=== PATIENT | female | born 2000 | race Caucasian/White ===

== ENCOUNTER 2025-06-19 16:50 | Emergency (ER) | payer OTHER, SELFPAY ==
--- OUTSIDE RECORDS SUMMARY | 2025-01-02 11:00 | XMS_ITS ---
Author Organization [facility] Address [address] [place], [place] [id number] Care Team Providers Care Binder Fixer Name Role Phone Nic Wanda Unavailable [phone] Encounters Encounter Location Date Provider Diagnosis [facility] [address] [place], [place] [id number] 01/02/2025 Wanda Lucero Plan Of Treatment No Information Progress Notes * Kimmie CARBALLODOB:2000 (24 yo F)Acc No.[id number]:01/02/2025 Patient:?Kimmie Carballo :?Wanda Lucero ODDOB:2000???Age:24 Y???Sex: FemaleDate:01/02/2025Phone:[phone]:[id number] [id number] In:04:18 PM ESTCheck Out:04:43 PM EST Objective: Vision Examination:? * Electronic signature of Wanda Lucero on 06/19/2025 at 06:17 PM ESTSign off status: PendingVisit Status:?NOT Treate (Pt was not Treated by Provider) * Provider: Jet Lucero OD Date: 0 01/02/2025 Generated for Printing/Faxing/eTransmitting on:?06/19/2025 06:17 PM EST
[2025-06-19 17:20] VITALS: BP 130/87; PULSE 107; TEMP 36.1; O2SAT 100; BMI 25.6
[2025-06-19] MEDS: ONDANSETRON 4 MG RAPDIS TABLET SL (18:03)
--- NOTE | 2025-06-19 18:16 | ED.GENADUL1 ---
HPI HPI - General Adult General Chief complaint: Nausea/Vomiting/Diarrhea Stated complaint: Nausea/Vomiting/Diarrhea Time Seen by Provider: 06/19/25 17:31 Source: patient Mode of arrival: Wheelchair Limitations: no limitations History of Present Illness HPI narrative: 24-year-old female presents to the emergency room with chief complaint of nausea vomiting. Patient has a history of cyclic vomiting post marijuana use. She states she been smoking marijuana over the last several hours and vomiting. She is here requesting a Zofran. She is here visiting friends from out of town and she has not been to this ER in the past. Patient's vital signs are stable not currently febrile plan Related Data Previous Rx's ?Medication ?Instructions ?Recorded ondansetron 4 mg disintegrating 4 mg PO Q8H PRN nausea and 06/19/25 tablet vomiting 3 days #10 tabs Allergies Allergy/AdvReac Type Severity Reaction Status Date / Time No Known Drug Allergies Allergy Verified 06/19/25 17:19 Opioid HPI Opioid Management Most Recent Opioid Data: Last Pain Scale 10 Today, 17:20 Review of Systems ROS Status of ROS 10 or more systems reviewed and unremarkable except as noted in history and below PFSH PFSH Social History Little interest or pleasure in doing things: not at all Feeling down, depressed, or hopeless: not at all Exam Narrative Exam Narrative: All Systems are negative except as noted/marked.All systems reviewed and otherwise negative Nurses note and vital signs reviewed and patient is not hypoxic. General: The patient appears uncomfortable with emesis bag at bedside Skin: Warm, dry, no pallor noted. There is no rash noted. Head: Normocephalic, atraumatic Eye: Normal conjunctiva, no drainage, EOMI. PERRL Ears, Nose, Mouth, and Throat: oral mucosa is moist. Nares patent. Mouth without vesicles. Ear canals patent. Tm's without Erythema Cardiovascular: Regular Rate and Rhythm Respiratory: Patient is in no distress, no accessory muscle use, lungs are clear to auscultation, no wheezing, rales or rhonchi Back: non-tender, no CVA tenderness bilaterally to percussion. GI: Normal bowel sounds, no tenderness to palpation, no masses appreciated. No rebound, guarding, or rigidity noted. Musculoskeletal: The patient has no evidence of calf tenderness, no pitting edema, symmetrical pulses noted bilaterally Neurological: A&O x4, normal speech Psychiatric: Cooperative Constitutional Vital Signs, click to edit/add: Last Vital Signs Temp 97 F L 06/19/25 17:20 Pulse 107 H 06/19/25 17:20 Resp 16 06/19/25 17:20 BP 130/87 06/19/25 17:20 Pulse Ox 100 06/19/25 17:20 O2 Del Method Room Air 06/19/25 17:20 Course Vital Signs Vital signs: Vital Signs Temperature 97 F L 06/19/25 17:20 Pulse Rate 107 H 06/19/25 17:20 Respiratory Rate 16 06/19/25 17:20 Blood Pressure 130/87 06/19/25 17:20 Pulse Oximetry 100 06/19/25 17:20 Oxygen Delivery Method Room Air 06/19/25 17:20 Temperature 97 F L 06/19/25 17:20 Pulse Rate 107 H 06/19/25 17:20 Respiratory Rate 16 06/19/25 17:20 Blood Pressure 130/87 06/19/25 17:20 Pulse Oximetry 100 06/19/25 17:20 Oxygen Delivery Method Room Air 06/19/25 17:20 Medical Decision Making MDM Narrative Medical decision making narrative: 24-year-old female presents to the emergency room with chief complaint of nausea vomiting. Patient has a history of cyclic vomiting post marijuana use. She states she been smoking marijuana over the last several hours and vomiting. She is here requesting a Zofran. She is here visiting friends from out of town and she has not been to this ER in the past. Patient's vital signs are stable not currently febrile plan Patient's nurse went into the room to try to assess her and she stated she would not let allow any blood work to be drawn or other testing done until she had an oral Zofran. When the nurse went back with the Zofran she states she did not want any thing drawn at this time she was trying to feel better. I went and explained to the patient that we do have a full ER if she does not want further testing we can get her discharged and she agreed. Patient be discharged home cyclic vomiting. Vital signs are stable she is not currently vomiting after dose of Zofran. Patient had no questions at discharge Differential Diagnosis Differential Diagnosis: Nausea, vomiting, cyclic vomiting, marijuana use Medical Records Medical records reviewed: Yes I reviewed the patient's medical records Lab Data Lab results reviewed: Yes I reviewed the patient's lab results Discharge Plan Discharge Chief Complaint: Nausea/Vomiting/Diarrhea Clinical Impression: Drug-induced nausea and vomiting Patient Disposition: Home, Self-Care Time of Disposition Decision: 18:14 Condition: Good Prescriptions / Home Meds: New ondansetron 4 mg tablet,disintegrating 4 mg PO Q8H PRN (Reason: nausea and vomiting) 3 Days Qty: 10 0RF Print Language: Bulgarian Instructions: Cyclic Vomiting Syndrome (ED) Referrals: Physician,Non-Staff, MD [Primary Care Provider] - 1 week
--- OUTSIDE RECORDS SUMMARY | 2025-06-19 18:19 | XMS_ITS | Clinical Summary ---
Author Organization [facility] Address [address] [place] [address] Care Team Providers Care Pastor Name Role Phone Guille Singh DO Primary Care Provider [phone] Allergies No known active allergies Medications MedicationSigDispense QuantityRefillsLast FilledStart DateEnd DateStatus albuterol 108 (90 Base) MCG/ACT inhaler Inhale 1 puff every 6 hours as needed for wheezing. 18 g ctive fluticasone (Flonase) 50 MCG/ACT nasal spray Indications:Nasal congestion with rhinorrheaAdminister 2 sprays into each nostril daily. Shake gently. Before first use, prime pump. After use,clean tip and replace cap. 16 g 01/10/2024ctive cholestyramine (Questran) 4 g packet Take 1 packet (4 g) by mouth daily. 90 packet ctive Slynd 4 MG tablet Take 1 tablet by mouth daily.5Active DULoxetine (Cymbalta) [address] capsule Indications:Episode of recurrent major depressive disorder, unspecified depression episode severity,HAMIDA (generalized anxiety disorder)TAKE 1 CAPSULE (30 MG) BY MOUTH DAILY. DO NOT CRUSH OR CHEW. 90 capsule /ctive Lo Loestrin Fe 1 MG-10 MCG / 10 MCG tablet /Discontinued escitalopram (Lexapro) 10 MG tablet Indications:Recurrent major depressive disorder, in partial remission,HAMIDA (generalized anxiety disorder)Take 2 tablets (20 mg) by mouth daily. 30 tablet Discontinued sertraline (Zoloft) 50 MG tablet Take 50 mg by mouth daily.05/27/2025Discontinued DULoxetine (Cymbalta) [address] capsule Indications:Episode of recurrent major depressive disorder, unspecified depression episode severity,HAMIDA (generalized anxiety disorder)Take 1 capsule (30 mg) by mouth daily. Do not crush or chew. 30 capsule Discontinued Active Problems ProblemNoted DateDiagnosed DateBile acid malabsorption miejpsch38/06/2024 Assessment & Plan (05/27/2025 4:45 PM EDT): -Chronic, controlled -Symptoms present since cholecystectomy in 2019 -Previously discussed and prescribed cholestyramine, however did not take due to medication not tasting good -Encouraged adherence -Denies changes in bowel movements, blood in stool, or FH of CRC Orders: CBC Comprehensive metabolic panel Lipid panel Assessment & Plan (03/04/2024 3:43 PM EDT): -Generalized crampy abdominal pain with 8 episodes of loose stools daily since cholecystectomy in 2019 -Started on cholestyramine 4 g daily -Provided patient with instructions on proper use and up-titration Lhuofty1302/07/2024 Assessment & Plan (02/07/2024 11:26 PM EDT): - Witnessed syncopal episode lasting few seconds preceded by feeling of warmth in the past week - Endorses prior history of syncopal episodes 1-2 years ago - Will assess for arrhythmia with holter monitor Srbzwc7801/11/2024 Assessment & Plan (01/11/2024 7:58 AM EDT): -Patient stated that she has intermittent nausea, uses marijuana [smoking, chewables] -Prescription sent for short course of Zofran -Reassess in 4 weeks for symptom control. Nasal congestion with /14/2024 Assessment & Plan (01/11/2024 7:58 AM EDT): -Patient having rhinorrhea with nasal congestion and sore throat since 3 days likely viral cause HAMIDA (generalized anxiety disorder)10/10/2022 Assessment & Plan (05/27/2025 4:45 PM EDT): -Chronic, uncontrolled\ -As above Orders: DULoxetine (Cymbalta) [address] capsule; Take 1 capsule (30 mg) by mouth daily. Do not crush or chew. Assessment & Plan (03/04/2024 3:22 PM EDT): -HAMIDA-7 score: 4 -Endorses improved symptoms and has not been using friend's Xanax -On lexapro 10 mg daily, intermittent use. Counseled on daily adherence Assessment & Plan (02/07/2024 11:27 PM EDT): - HAMIDA-7 score:14 - Endorses episodes of tachycardia, chest pain, nausea for the past year - Lexapro uptitrated to 20 mg; recommended decreasing THC use Assessment & Plan (01/11/2024 7:55 AM EDT): -HAMIDA-7 score of 5 this visit -Patient stated that sertraline not helping with any of the symptoms -Start escitalopram 10 Mg daily, follow-up visit in 4 weeks for medication adjustment -Referral to [facility] clinic for medication recommendations -Last TSH 1 year ago normal, recheck TSH to rule out thyroid disorder Assessment & Plan (11/15/2022 1:32 PM EDT): - HAMIDA-7 score of 5 this visit - Significant symptom improvement on sertraline - Plan for up titration to 150mg as above - Follow-up in 4 weeks to assess dose titration Assessment & Plan (10/10/2022 1:53 PM EDT): - HAMIDA-7 16 - Patient not experiencing significant relief in anxiety on fluoxetine 20 mg - Consideration for bupropion given depression, and untreated suspected ADHD, however given severe anxiety endorsed by patient, would recommend against this at this time - Counseling resources provided ADHD (attention deficit hyperactivity disorder) vwdqbedhvm58/22/2022 Assessment & Plan (10/10/2022 1:54 PM EDT): - Referral placed for evaluation at last office visit, however patient reports she never received call back to schedule appointment - Provided patient with list of resources for adult ADHD assessment - Untreated ADHD may be contributing to patient's other behavioral health conditions, [facility] [place] [facility], and patient will need to establish with appropriate clinic Assessment & Plan (06/20/2022 4:21 PM EST): External referral placed Encouraged patient to call to set up appointment Recurrent major depressive disorder, in partial qogfihomj35/26/2022 Overview (11/15/2022): Anxiety/Depression: Seen 10/10/22 for depression, unresponsive to fluoxetine. Patient changed to sertraline 50mg, plans to uptitrate to 100mg at 1 week. Patient provided with counseling resources thatvisit. Presenting today for follow up on medication changes. Assessment & Plan (03/04/2024 3:21 PM EDT): -PHQ-9 score: 8 -Denies suicidal or homicidal ideations -On lexapro 10 mg, intermittent adherence to medication -Counseled on daily use and side effects with abrupt cessation Assessment & Plan (02/07/2024 11:22 PM EDT): - PHQ-9 score; denies suicidal or homicidal ideations - On lexapro 10 mg, will uptitrate to 20 mg Assessment & Plan (01/11/2024 7:57 AM EDT): -PHQ-9 score 8 today -No SI/HI -Patient spoke to [facility] today, declined counseling services. Recommend referral to [facility] clinic -Patient started on escitalopram 10 Mg daily today, reassess in 4 weeks for medication adjustment -Recheck TSH for thyroid dysfunction Assessment & Plan (11/15/2022 1:33 PM EDT): - Symptoms much improved with transition from fluoxetine to sertraline - PHQ-9 score of 10 this visit - Patient interested in dose increase from 100 mg to 150 mg daily of sertraline - Prescription sent - Patient reports she has counseling resources as provided at previous visit, declines further resources at this time - No SI/HI - Patient may ultimately benefit from dual therapy, discussed this visit, patient prefers uptitration at this time - Follow-up at 4 weeks to evaluate dose increase Assessment & Plan (10/10/2022 1:52 PM EDT): - PHQ-9 23 - Patient previously on fluoxetine 20 mg - Patient reports that she is feeling no ongoing benefit, despite continuing to take medication at prescribed dose - Requesting increase in dose, or alternative medication - Concurrent anxiety, and concern for ADHD (not formally diagnosed) - Evidence of passive SI during evaluation, without plans or intent - We will change fluoxetine 20 mg to Zoloft 50 mg, with plan to uptitrate to 100 mg after 1 week - Patient provided with local counseling resources, as well as crisis resources with AVS - Patient will follow-up in 4 weeks to reassess symptoms on Zoloft and need for further medication adjustments Assessment & Plan (06/20/2022 4:20 PM EST): Stable, controlled Continue fluoxetine 20 mg Assessment & Plan (04/24/2022 11:45 AM EDT): Patient has a history of depression for which she was prescribed with 10 mg of Fluoxetine and will want a refill of this medication. Currently do not feel depressed, no suicidal ideation or plan but says she wants to continue fluoxetine use at a higher dose because of the benefits she is getting so far. PLAN - Refill for fluoxetine 20 mg daily done - Option of Psych counseling discussed with her and she is open and willing to benefit from the counseling services at the [facility] [place] Asthma, intermittent, cwksztwoeulif89/24/2022Chronic midline low back pain without gbtwylof56/01/2018 Assessment & Plan (11/15/2022 1:38 PM EDT): - Chronic, ongoing greater than 5 years - No triggering event per patient - Trialed heat, ice, stretches, and OTC pain relievers without success - History of physical trauma at young child (falling down flight of stairs) - No evidence of scoliosis or other deformity on exam - No red flag symptoms for cauda equina or malignancy - Given chronic nature of pain with failure of conservative therapy, plan to obtain lumbar XR - Encouraged continued use of home exercises, instructions provided on AVS - Patient requesting information on medical marijuana, education provided on AVS - Reassess at follow up pending Xray results Assessment & Plan (06/20/2022 4:19 PM EST): Encourage patient to go to PT - open referral Discussed other conservative management: stretching, heat/ice, nsaids Assessment & Plan (04/24/2022 11:51 AM EDT): Pain is non radiating and had previously been treated with NSAIDS: Ibuprofen, Naproxen and topical medications with minimal relief. Options of physical therapy discussed. PLAN - PO meloxican 7.5 mg daily PRN (to be taken with meals); discontinue other NSAID'S.. - Referral for Physical therapy done Primary zlsppkti48/01/2018 Resolved Problems ProblemNoted DateDiagnosed DateResolved DateHistory of anylamcpa58/26/2022 01/10/2024 Assessment & Plan (04/24/2022 11:38 AM EDT): Recently treated for Chlamydia. Symptoms have resolved now, no dysuria, fever, or discharge. PLAN - To retest 3 months from completion of treatment. UTI (urinary tract infection)/06/2024 Assessment & Plan (04/24/2022 1:45 PM EDT): Received Bactrim for treatment of urinary symptoms including dysuria and 1 dose of Fluconazole for yeast infection last week. Urine culture on 04/22/22 shows no growth and her dysuria has resolved. PLAN: - Discontinue Bactrim according to antibacterial stewardship recommendation and also to avoid possible fungal overgrowth. Pelvic pain/06/2024 Overview (05/13/2022): Poor tolerance to speculum exam following TVUS Speculum exam visually unremarkable TVUS unremarkable Urine dip concerning for UTI S/p rocephin 1g, mefoxin 2g, and doxycycline 250mg in ED GC/CT collected and ordered, however not yet pending, recommend sending GC/CT Low suspicion for PID at this time, however given it remains a possibility, would recommend completing PID treatment with full 14 day course of doxycycline Given patient tolerating PO intake and no signs of TOA, treatment can be completed outpatient Recommend f/u with primary rooming house keeper outpatient in 2 weeks Allergic kqhvpgri76 Overview (05/13/2022): This term is a replacement for an inactive term Acne fymwpqnp68 Encounters DateTypeDepartmentCare IqekBeeqmheilyd80/20/2025Refill [facility] Internal [facility] - [address] [phone] Guille Singh DO Episode of recurrent major depressive disorder, unspecified depression episode severity; HAMIDA (generalized anxiety disorder)05/27/2025 3:50 PM EDTOffice Visit [facility] - [address] [phone] Stella Richards MD Merchant, Urja, DO Overweight (BMI 25.0-29.9) (Primary Dx); HAMIDA (generalized anxiety disorder); Episode of recurrent major depressive disorder, unspecified depression episode severity; Bile acid malabsorption gnfucide74/29/2025Travelfrom Last 3 Months Immunizations ImmunizationAdministration DatesNext YljCPeU3104/25/2006,03/19/2003,08/01/2002, 05/23/2002,02/25/2002Hep B, adult2001Hib (PRP-T)01/01/2003,05/23/2002Hib / Hep B008/01/2002,02/25/2002IPV04/25/2006,05/23/2002,02/25/2002MMR01/01/2003MMRV 04/25/2006Meningococcal IMU9N8309/22/2016Pneumococcal Conjugate PCV 7003/19/2003, 05/23/2002,02/25/2002Tdap03/11/20143858Rmlufifkn11/05/2003 Family History * Patient is adopted Medical HistoryRelationNameCommentsSubstance AbuseMotherADD / BEQBOhxidg0Dtzio dywrjmuZvjojl3Enxz rsntYbfarcdkLqpxAzxgcfAuvsmzcxDgmchyn0TivfjWljcocLviuuvgMgfdk PgthykJcecfSwgspn0Khhkr Social History Tobacco UseTypesPacks/DayYears UsedDateSmoking Tobacco: NeverSmokeless Tobacco: Never Tobacco Cessation:Counseling Given: Yes Comments:VAPES Alcohol UseStandard Drinks/WeekCommentsYes0 (1 standard drink = 0.6 oz pure alcohol)rarelyAUDIT-CAnswerDate RecordedQ1: How often do you have a drink containing alcohol?Never01/06/2024Q2: How many drinks containing alcohol do you have on a typical day when you are drinking?Patient does not drink01/06/2024Q3: How often do you have six or more drinks on one occasion?Never01/06/2024Overall Financial Resource Strain (CARDIA)AnswerDate RecordedHow hard is it for you to pay for the very basics like food, housing, medical care, and heating?Very hard 01/10/2024HQ-2AnswerDate RecordedPatient Health Questionnaire-2 Score3 01/10/2024RAPARE - TransportationAnswerDate RecordedIn the past 12 months, has lack of transportation kept you from medical appointments or from getting medications?No01/10/2024In the past 12 months, has lack of transportation kept you from meetings, work, or from getting things needed for daily living?No 01/10/2024Housing Stability Vital SignAnswerDate RecordedIn the last 12 months, was there a time when you were not able to pay the mortgage or rent on time?No 01/10/2024Number of Places Lived in the Last YearNot on file01/10/2024In the last 12 months, was there a time when you did not have a steady place to sleep or slept in [place] (including now)?No01/10/2024HQ-9AnswerDate RecordedPatient Health Questionnaire-9 Zncsf55501/10/2024CommentsNoSex and Gender InformationValueDate RecordedSex Assigned at AljvjTlsnbg12/09/2024 8:16 PM EDT Legal AneGyeywb94/01/2022 2:04 PM EDTGender ExahsauhFemvcl73/09/2024 8:16 PM EDT Sexual MihbinaoqmwVwmeekdm95/11/2024 1:48 PM EDT Last Filed Vital Signs Vital SignReadingTime TakenCommentsBlood Gpqkqyay316/7105/27/2025 4:05 PM EDT Gumli764105/27/2025 4:05 PM CUOYppkmyxqnyl99.4 ??C (97.5 ??F)05/27/2025 4:05 PM EDTRespiratory Tmrg316509/15/2024 8:01 PM ESTOxygen Vkrpoewhus06%05/27/2025 4:05 PM EDTInhaled Oxygen Concentration--Lnqziq33 kg (139 lb)05/27/2025 4:05 PM EDT Lambwh918.5 cm (5' 2 )05/27/2025 4:05 PM EDTBody Mass Index25.421 4:05 PM EDT Plan of Treatment Health MaintenanceDue DateLast DoneCommentsMeningococcal B Vaccine (1 of 2 - Standard)2017HPV Vaccines (3 - 3-dose series), 06/04/2020Pneumococcal Vaccine: Pediatrics (0 to 5 Years) and At-Risk Patients (6 to 49 Years) (1 of 2 - PCV), 05/23/2002, 02/25/2002Pap Smear3DTaP/Tdap/Td Vaccines (7 - Td or Tdap)/, 04/25/2006, 03/19/2003, Additional history existsCOVID-19 Vaccine (1 - 2024- season)2025Influenza Vaccine (#1)/12/2019, 08/23/2005 Depression Rucemmpyrf65, 01/10/2024Zoster Vaccines (1 of 2) , 08/17/2004, 01/01/2003RSV Immunization for Adults (1 - 1- dose 75+ series)2076Hepatitis B EmwbyufoMsptqwtor59/03/2003, 02/25/2002, 2001HIB WejsvlouUpppxnkth98/05/2003, 08/01/2002, 05/23/2002, Additional history existsIPV HhnohxqcPmtumksgo47/27/2006, 08/01/2002, 05/23/2002, Additional history existsMMR GcbnoehsEuysvilup57/27/2006, 01/01/2003Varicella MyddnmcaCpxtwhbsq67/27/2006, 08/17/2004, 01/01/2003Meningococcal Vaccine Snovvfucl03/26/2019, 09/22/2016HIV NgzmsyvacWdhqicovi89/19/2023Hepatitis C KeyjlcirzHhacaagtt09/19/2023Hepatitis A VaccinesAged OutNo longer eligible based on patient's age to complete this topicRSV Immunization under 20 MonthsAged Out No longer eligible based on patient's age to complete this topicRotavirus VaccinesAged OutNo longer eligible based on patient's age to complete this topic Procedures Procedure NamePriorityDate/TimeAssociated DiagnosisCommentsHEPATITIS C ANTIBODY Cpdktrw7611/15/2022 11:54 AM EDT Encounter for hepatitis C screening test for low risk patient HIV1,2 COMBO ANTIGEN-ANTIBODY SNOFMUXbmyorc68/19/2023 11:54 AM EDT Encounter for screening for HIV from Last 3 Months or Most Recently Relevant to Health Maintenance Results * HIV-1 and HIV-2 Antigen-Antibody Screen (11/15/2022 11:54 AM EDT)Component ValueRef RangeTest MethodAnalysis TimePerformed AtPathologist SignatureHIV 1,2 COMBO ANTIGEN/CCXCSBKRUgsulyxyoueLxvejzibvez69/20/2023 12:57 PM EDTSUMVAN WERT COUNTY HOSPITALComment:The specimen was non-reactive for HIV-1 and HIV-2 antibodies and p24 antigen using an FDA-cleared 4th generation HIV test. Based on this non- reactive screen result, further reflexive testing was not indicated and was, therefore, not performed.Specimen (Source)Anatomical Location / Laterality Collection Method / VolumeCollection TimeReceived TimeBloodVenous blood specimen / UnknownVenipuncture / Tetgltq5311/15/2022 11:54 AM EDT11/15/2022 1:23 PM EDT Narrative Authorizing ProviderResult TypeResult StatusAdleo Blair [facility]DSUM[facility] BLOOD ORDERABLESFinal ResultPerforming OrganizationAddressty/State/ZIP CodePhone Number [address] [address], * Hepatitis C antibody (11/15/2022 11:54 AM EDT)ComponentValueRef RangeTest MethodAnalysis TimePerformed AtPathologist SignatureHEPATITIS C VIRUS ABNot DetectedNot Ufrtphia08/19/2023 8:27 PM [facility]Comment:Patients with DETECTED Hepatitis C Ab results should have a new specimen submitted for supplementaltesting with a Hepatitis C Quantitative RNA assay (viral load), if clinically indicated.Specimen (Source)Anatomical Location / Laterality Collection Method / VolumeCollection TimeReceived TimeBloodVenous blood specimen / UnknownVenipuncture / Bxygxfh7911/15/2022 11:54 AM EDT11/15/2022 1:23 PM EDT Narrative Authorizing ProviderResult TypeResult StatusAdleo Blair [facility]DS[facility] BLOOD ORDERABLESFinal ResultPerforming OrganizationAddressty/State/ZIP CodePhone Number [address] [address], from Last 3 Months or Most Recently Relevant to Health Maintenance Insurance * Guarantor: Kimmie James TypeRelation to PatientDate of BirthPhone Billing AddressPersonal/YacuvfIpxk92/[address] [place] [address] * Guarantor: Kimmie James TypeRelation to PatientDate of BirthPhone Billing AddressPersonal/WlxdukLmpo50/16/[address] [place] [address] Care Teams Team MemberRelationshipSpecialtyStart DateEnd Date DO Guille [address] [facility] [address] [place], [place] [id number] PCP - General02/07/24
--- OUTSIDE RECORDS SUMMARY | 2025-06-19 18:19 | XMS_ITS | Clinical Summary ---
Author Organization [facility] Address [address] [facility], [address] [place] [address] Care Team Providers Care Mental Health Therapist Name Role Phone Devon Mira WHITE Primary Care Provider [phone] Allergies No known active allergies Medications MedicationSigDispense QuantityRefillsLast FilledStart DateEnd DateStatus ELURYNG 0.12-0.015 MG/24HR vaginal ring 12/29/2021ctive ISOtretinoin (ACCUTANE) 30 MG chemo capsule take 1 capsule by mouth twice a day MUST TAKE WITH A MEAL01/17/2022ctive Cranberry 1000 MG CAPS Take by mouthActive meloxicam (MOBIC) 7.5 MG tablet Indications:Chronic bilateral low back pain without sciaticaTake 1 tablet by mouth daily as needed for Pain 90 tablet 04/24/2022ctive FLUoxetine (PROZAC) 20 MG tablet Indications:Current moderate episode of major depressive disorder, unspecified whether recurrent (HCC)take 1 tablet by mouth once daily 90 tablet ctive famotidine (PEPCID) 20 MG tablet Indications:UrticariaTake 1 tablet by mouth 2 times daily for 14 days 28 tablet 04/30/2022ctive Active Problems Patient Care Coordination No te Formatting of this note migh t be different from the original. Tsh? ProblemNoted DateDiagnosed DateCurrent moderate episode of major depressive ddxmhiyb53/26/2022 Assessment & Plan (04/24/2022 11:59 AM EDT): Patient has a history of [...] benefit from the counseling services at the [facility] Encounter for initial prescription of intrauterine contraceptive device (IUD) 04/24/2022 Assessment & Plan (04/24/2022 1:59 PM EDT): Patient is currently on Accutane for acne as prescribed by her Pathology Secretary and uses Vaginal ring as her only contraception. PLAN - Discussed the need for additional form of protection against , agreed to this option. - Encouraged the use of Condom in addition to Vaginal ring form of protection. - Referral to [facility]INE to discuss further on the options available and best suitable to her History of eenkcvchj60/26/2022 Assessment & Plan (04/24/2022 1:44 PM EDT): Recently treated for Chlamydia. Symptoms have resolved now, no dysuria, fever, or discharge. PLAN - To retest 3 months from completion of treatment. Pelvic pain01/30/2022 Overview (04/22/2022): Poor tolerance to speculum exam following TVUS [...] be completed outpatient Recommend f/u with primary investigator outpatient in 2 weeks Primary /01/2018Chronic bilateral low back pain without sciatica 05/30/2018 Assessment & Plan (04/24/2022 1:38 PM EDT): Pain is non radiating and had previously been treated with NSAIDS: Ibuprofen, Naproxen and topical medications with minimal relief. Options of physical therapy discussed. PLAN - PO meloxican 7.5 mg daily PRN (to be taken with meals); discontinue other NSAID'S.. - Referral for Physical therapy done Asthma, intermittent, shgtxywwhjalq93/23/2018Allergic piwntozh80/17/2007 Overview (04/22/2022): This term is a replacement for an inactive term Resolved Problems ProblemNoted DateDiagnosed DateResolved DateUTI (urinary tract infection) Assessment & Plan (04/24/2022 1:50 PM EDT): Received Bactrim for treatment of urinary symptoms including dysuria and 1 dose of Fluconazole for yeast infection last week. Urine culture on 04/22/22 shows no growth and her dysuria has resolved. PLAN: - Discontinue Bactrim according to antibacterial stewardship recommendation and also to avoid possible fungal overgrowth. Hair loss Immunizations ImmunizationAdministration DatesNext GtpZOgW7604/25/2006,03/19/2003,08/01/2002, 05/23/2002,02/25/2002Hep B/Hib (Comvax)08/01/2002,02/25/2002Hepatitis B 2001Hib PRP-T, ACTHIB (age 2m-5y, Adlt Risk), HIBERIX (age 6w-4y, Adlt Risk), IM, 0.5mL01/01/2003,05/23/2002Influenza Vaccine, unspecified formulation 08/23/2005MMR, PRIORIX, M-M-R II, (age 12m+), SC, 0.5mL01/01/2003MMR-Varicella, PROQUAD, (age 12m -12y), SC, 0.5mL04/25/2006Meningococcal ACWY, MENACTRA (MenACWY-D), (age 9m-55y), IM, 0.5mL02Pneumococcal Conjugate 7-valent (Prevnar7)03/19/2003,05/23/2002,02/25/2002Poliovirus, IPOL, (age 6w+), SC/IM, 0.5mL09,05/23/2002,02/25/2002TDaP, ADACEL (age 10y-64y), BOOSTRIX (age 10y+), IM, 0.5mL03/11/2014Varicella, VARIVAX, (age 12m+), SC, 0.5mL06 Family History * Patient is adopted Medical HistoryRelationNameCommentsSubstance QcokyRihtuvSYTUNwehrs0Bdqtg Disease Mhhhsq6Yoos hvwvDwiwscwgRpprGwluqdRqffclggThjrnry3DjqrxRifjcsVwnkstnUrlckLxsxje GjesuLffwfs7Hpeuy Social History Tobacco UseTypesPacks/DayYears UsedDateSmoking Tobacco: NeverSmokeless Tobacco: Never Tobacco Cessation:Counseling Given: Not Answered Alcohol UseStandard Drinks/WeekCommentsYes0 (1 standard drink = 0.6 oz pure alcohol)rarelyPHQ-2AnswerDate RecordedPHQ-9 Total Azjmc111/26/2022 CommentsNoSex and Gender InformationValueDate RecordedSex Assigned at BirthNot on fileLegal FbgNfjedf71/14/2015 3:20 PM EDTGender IdentityNot on fileSexual OrientationNot on file Last Filed Vital Signs Vital SignReadingTime TakenCommentsBlood Gfcayehg537/6410 9:30 AM EDT Lntfo230605/22/2022 9:30 AM PTVQupqtxmxxdn12.7 ??C (98 ??F)05/22/2022 9:30 AM EDT Respiratory Rate--Oxygen Epzhtjcdln92%05/22/2022 9:30 AM EDTInhaled Oxygen Concentration--Msfutj60.6 kg (116 lb)05/22/2022 9:30 AM CENKwbisv622.5 cm (5' 2 )05/22/2022 9:30 AM EDTBody Mass Index21.221 9:30 AM EDT Plan of Treatment Not on file Insurance Care Teams Team MemberRelationshipSpecialtyStart DateEnd Date Mira Osorio DO [facility]04/24/22
--- OUTSIDE RECORDS SUMMARY | 2025-06-19 18:19 | XMS_ITS | Patient Health Record ---
Author Organization [facility] Address [address] [address] [place], [place] [id number] Care Team Providers Care Supervisor Train Operations Name Role Phone Wanda Lucero Unavailable [phone] Reason For Referral No Information Social History Social History Social HistorySocial InfoQuestionAnswerNotesAlcohol Screening:Did you have a drink containing alcohol in the past year?CdLwlswk1NgjrspbhhhxzztZhvjrkozLnqdvyc Use:Are you a:never smoker Encounters Encounter Location Date Provider Diagnosis [facility] [address] [facility] [address] [place], [place] [id number] 01/02/2025 Wanda Lucero Plan Of Treatment No Information
--- OUTSIDE RECORDS SUMMARY | 2025-06-19 18:19 | XMS_ITS | Encounter Summary ---
Author Organization [facility] Address [address] [place] [address] Care Team Providers Care Laboratory Helper Name Role Phone Guille Singh DO Primary Care Provider [phone] Reason for Visit * ReasonCommentsMed Change Request Encounter Details DateTypeDepartmentCare Team (Latest Contact Info)Ddjdrzgtwcn19/20/2025[facility] [address] [place] [id number] Guille Singh DO [address] [place] [address] Episode of recurrent major depressive disorder, unspecified depression episode severity; HAMIDA (generalized anxiety disorder) Social History Tobacco UseTypesPacks/DayYears UsedDateSmoking Tobacco: NeverSmokeless Tobacco: Never Comments:VAPES Alcohol UseStandard Drinks/WeekCommentsYes0 (1 standard drink [...] food, housing, medical care, and heating?Very hard 4PHQ-2AnswerDate RecordedPatient Health Questionnaire-2 Score3 01/10/2024RAPARE - TransportationAnswerDate [...] steady place to sleep or slept in ashelter (including now)?No01/10/2024HQ-9AnswerDate RecordedPatient Health Questionnaire-9 Kvrdn22201/10/2024CommentsNoSex and Gender InformationValueDate RecordedSex Assigned at LahcrGkmjjq93/09/2024 8:16 PM EDT Legal ZpiKavkrd30/01/2022 2:04 PM EDTGender ZqjcuohzRbzyte98/09/2024 8:16 PM EDT Sexual FuwzgliogwsJuvzvqsm87/11/2024 1:48 PM EDTdocumented as of this encounter Plan of Treatment Not on file documented as of this encounter Visit Diagnoses Diagnosis Episode of recurrent major depressive disorder, unspecified depression episode severity HAMIDA (generalized anxiety disorder) Generalized anxiety disorder documented in this encounter Additional Health Concerns AssessmentNoted TimePHQ-9 Depression Total Score: 8001/10/2024 3:25 PM EDT documented as of this encounter Care Teams Team MemberRelationshipSpecialtyStart DateEnd Date Guille Singh DO [address] [facility] [address] [place] [address] PCP - General02/07/24documented as of this encounter
--- OUTSIDE RECORDS SUMMARY | 2025-06-19 18:19 | XMS_ITS | Patient Health Record ---
Author Organization Corporate Office Address [address] [place] [address] [address] [place] [address] Care Team Providers Care Mud Analysis Supervisor Name Role Phone None, None Primary Care Provider Zia Underwood Unavailable [phone] Mary Blackman CNP Unavailable Allergies No Known Allergies Results Component Value Reference Range Notes Flu Test, Veritor Reviewed date:09/20/2024 02:23:37 PM Interpretation:Negative Performing Lab: Notes/Report: Negative Result, A neg Result, Bneg Reason For Referral No Information Medications Medication SIG (Take, Route, Frequency, Duration) Notes Start Date End Date Status Amoxicillin 875 MG 1 tablet Orally Twice a day; Duration: 10 day(s) 02/25/20216021Ukh-XbyxbmHgmnjcmiumbkulBSOCBGDIKRKZud-NiwdkjYnebbaomc Sulfate HFA 108 (90 Base) MCG/ACT1 puff as needed Inhalation every 4 hrs; Duration: 30 days 03/07/2021Not-TakingNuvaRing 0.12-0.015 MG/24HR1 ring leave in place for 3 weeks, remove, and replace with a new ring after 7 day break Vaginal asdirected; Duration: 30 daysNot-TakingDayQuil Multi-SymptomActiveNaprosyn 500 MG1 tablet as needed Orally every 12 hrs; Duration: 7 days03/17/2021Not-TakingMiconazole Nitrate 4 %1 applicatorful at bedtime Vaginal Once a day; Duration: 3 day(s) 03/11/2021Not-TakingEscitalopram Oxalate 20 MG1 tablet Orally Once a day; Duration: 90 days04/27/20203738Wkm-IejzhwZefpajlmfjdWhu-OprjxxWjgdmspqsfp 200 MG1 capsule Orally Three times a day; Duration: 10 days11/25/2020Not-Taking Amoxicillin-Pot Clavulanate 875-125 MG1 tablet Orally every 12 hrs; Duration: 10 day(s)11/25/2020Not-TakingZofran 4 MG1 tablet Orally q6; Duration: 5 days 04/02/2020Not-TakingpredniSONE 50 MG1 tablet Orally Once a day; Duration: 5 days 5ActiveDiflucan 150 MG1 tablet Orally once a day; Duration: ActiveAlbuterol Sulfate HFA 108 (90 Base) MCG/ACT1-2 puffs as needed Inhalation every 4-6 hrs as needed; Duration: 90 days02/01/2023ctiveZithromax Z-Agustin 250 MG as directed Orally once a day; Duration: 5ActiveMedrol (Agustin) 4 mg6 pills Day 1, 5 pills Day 2, 4 pills Day 3, 3 pills Day 4, 2 pills Day 5, 1 pill Day 6 Orally daily; Duration: 6 days02/01/2023Not-TakingFluconazole 150 MG1 tablet Orally Once a day03/11/2021Not-TakingFluconazole 150 MG1 tablet Orally once a day; Duration: 1 day03/07/2021Not-Taking Immunizations Vaccine Route Administration Date Status Comme nts IM Flu Fluzone 0.5ml (6 mo+) Prsv Free Quad Sanofi IM Intramuscular 06/04/2020 Administered med checked by Dr. HALL IM HPV Gardasil-9 0.5ml (9-26yr) Merck IM Intramuscular 06/04/2020 Administered med checked by Dr. HALL IM HPV Gardasil-9 0.5ml (9-26yr) Merck IM Intramuscular 07/09/2020 Administered med checked by Social History Tobacco Use: Social History Observation Description Date Details (start date - stop date) Current Smoker NA - NA Smoking Question Answer Notes Are you a: Current Smoker Section Notes: Denies ETOH use Denies illicit/IV drug use No history of substance abuse - Works at [employer] Denies ETOH use Denies illicit/IV drug use No history of substance abuse - Works at [employer] Denies ETOH use Denies illicit/IV drug use No history of substance abuse - 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 ETOH use Denies illicit/IV drug use No history of substance abuse - 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 Denies ETOH use Denies illicit/IV drug use No history of substance abuse - 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 Denies ETOH use Denies illicit/IV drug use No history of substance abuse - 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 Denies ETOH use Denies illicit/IV drug use No history of substance abuse - 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 Denies ETOH use Denies illicit/IV drug use No history of substance abuse - 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 Denies ETOH use Denies illicit/IV drug use No history of substance abuse - 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 Denies ETOH use Denies illicit/IV drug use No history of substance abuse - 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 Denies ETOH use Denies illicit/IV drug use No history of substance abuse - Works at [employer] VelociData Problems Problem Type SNOMED Code ICD Code Onset Dates Problem Status W/U Status Risk Notes Problem Anxiety (59773576) Anxiety (F41.9) ActiveconfirmedProblemExacerbation of asthma (010858949)Asthma exacerbation, mild (J45.901)ActiveconfirmedProblemAsthma without status asthmaticus (90981289) Asthma, unspecified asthma severity, unspecified whether complicated, unspecified whether persistent (J45.909)Activeconfirmed Vital Signs Temperature 97.1 degrees Fahrenheit 09/20/2024 Respiratory Rate16 /min09/20/2024Height-cm160.02 cm09/20/2024lood pressure mm Hg09/20/2024Weight-kg55.34 kg09/20/20243753Bwugfw75 in09/20/2024lood pressure bwiylxoi050 mm Hg09/20/20240476Ueyaaz686 lbs09/20/2024BMI21.61 kg/m2 09/20/2024 Encounters Encounter Location Date Provider Diagnosis [address] [facility] [address] [place] [address] 09/20/2024 Mary Blackman Asthma exacerbation, mild J45.901 ; Body aches R52 and Upper respiratory infection with cough and congestion J06.9 Assessments Encounter Date Diagnosis (ICD Code) Assessment Notes Treatment Notes Treatment Clinical Notes Section Notes 09/20/2024 Asthma exacerbation, mild (ICD-1 0 - J45.901) 09/20/2024ody aches (ICD-10 - R52)09/20/2024Upper respiratory infection with cough and congestion (ICD-10 - J06.9)09/20/2024OtherNo NSAIDs while on steroid. Plan Of Treatment Pending Test Test Name Order Date CMP (Comprehensive Metabolic Panel) 10/2019 Urine HCG Qual 08/20/2020 CBC with Diff 04/02/2020 EKG 08/20/2020 Insurance Providers Payer Name Payer Address Payer Phone Subscriber Number Group Number Insured Name Patient Relationship to Insured Coverage Start Date Coverage End Date [employer] - [facility] [address] [address] [facility] [address] [id number], HaileySelf - patient is the huuvcxr4407/[address] Attn [place], [place] [phone], [facility]Nat[facility] - Insured has Financial ResponsibilitySELF [id number] James - patient is the insured Medical (General) History Medical History History ICD Code Gallstones Anxiety/DepressionAcneAsthmaSurgical History Surgery Date(Month/Year) Cholecystectomy 2019 Hospitalization History Reason Date(Month/Year) Gallbladder (see surgical history) 2019
[2025-06-19 18:35] VITALS: BP 124/76; PULSE 94; O2SAT 99
== END 2025-06-19 18:35 | disposition home or self-care (01) ==
PROVIDERS: Emergency Provider Emergency Medicine
DX: R11.2 Nausea with vomiting, unspecified (principal); F12.988 Cannabis use, unspecified with other cannabis-induced disorder
CPT/HCPCS: 80053; 81001; 83690; 84703; 99281; Q0162